=== PATIENT | male | born 1995 | race Caucasian/White ===

== ENCOUNTER 2018-09-04 21:32 | Emergency (ER) | payer OTHER ==
[~2018-09-04] VITALS: Ht 188 cm; Wt 63.6 kg
[2018-09-04 22:02] VITALS: BP 114/77; Ht 188 cm; Wt 63.6 kg
== END 2018-09-04 23:12 | disposition home or self-care (01) ==
LOC: ED 21:32
DX: S61.412A Laceration without foreign body of left hand, initial encounter (principal); Z88.2 Allergy status to sulfonamides; Z87.19 Personal history of other diseases of the digestive system; W26.8XXA Contact with other sharp object(s), not elsewhere classified, initial encounter; Y93.89 Activity, other specified; Y92.89 Other specified places as the place of occurrence of the external cause; Y99.8 Other external cause status
CPT/HCPCS: J2001